=== PATIENT | female | born 1985 | race Caucasian/White ===

== ENCOUNTER → 2020-05-08 | Outpatient (CLI) | payer MEDICAID ==
[~2020-05-08] MED LIST: AMOXICILLIN 50500 MG PO; AMOXICILLIN 8751 TAB PO; CEPHALEXIN500 M1 PO; IBU600 MG PO; IMODIUM 2MG CAPS2 MG PO; NEWMANS TOP; NORCO 325 MG-51 TAB PO; PRENATAL 191 TAB PO; TYLENOL 325MG325 MG PO; TYLENOL W/COD1 UDTAB PO; ZOLOFT 50MG50 MG PO
== END ==
LOC: COL.RAD 05-07 10:26
DX: K80.20 Calculus of gallbladder without cholecystitis without obstruction (principal); K82.8 Other specified diseases of gallbladder
CPT/HCPCS: A9537; J2805

== ENCOUNTER 2020-05-15 10:31 | Day surgery (SDC) | payer MEDICAID ==
[~2020-05-15] VITALS: Ht 157.5 cm; Wt 69.1 kg
[2020-05-15 10:59] VITALS: PULSE 91; TEMP 98.2
[2020-05-15] MEDS ORDERED: PRISTIQ 50 MG T50 MG PO (12:01)
[2020-05-15] MEDS ORDERED: TOPROL XL 50MG50 MG PO (12:03)
[2020-05-15] MEDS ORDERED: ADDERALL20 MG PO ×3 (12:04→12:05)
[2020-05-15] MEDS ORDERED: PERCOCET 325 MG1 TA2 PO (14:26)
[2020-05-15] MEDS ORDERED: MOTRIN 600600 MG/TAB PO (14:26)
[2020-05-15 15:00] VITALS: BP 118/61; PULSE 87; TEMP 98.4
--- NOTE | 2020-05-15 15:00 | NUR ---
The patient arrived back to [facility] from the recovery room at this time. The patient appears drowsy but arouses easily to her name. The patient requests to try some cranberry juice and white toast at this time. The patient has five lap sites to her abdomen that are covered with claros set and without redness or edema. Post operative vital signs were started at this time. The patient's mother is at her bedside. Call light is wtihin reach. Will continue to monitor the patient.
[2020-05-15 15:15] VITALS: BP 100/72; PULSE 88
--- NOTE | 2020-05-15 15:15 | NUR ---
The patient appears to be tolerating the food and drink well. The patient's vital signs appear stable. The patient wanting anything further to eat or drink. The patient's mother remains at her bedside. Will continue to monitor the patient.
[2020-05-15 15:30] VITALS: BP 118/68; PULSE 97
--- NOTE | 2020-05-15 15:30 | NUR ---
The patient has finished her food and drink and appeared to tolerate them both well. The patient appears to be resting comfortably on the cart talking with her mother at this time. Call light remains within reach. Vital signs appear stable. Will continue to monitor the patient.
[2020-05-15 15:45] VITALS: BP 114/57; PULSE 98
--- NOTE | 2020-05-15 15:45 | NUR ---
The patient reports increased pain in her abdomen especially on the left side and was given a PRN dose of Percocet one tab at this time. The patient's vital signs appear stable. Call light is within reach. Will continue to monitor the patient.
--- NOTE | 2020-05-15 16:00 | NUR ---
The patient ambulated to the bathroom with the stand by assistance of one nurse and appeared to tolerate the activity well. The patient voided without difficulty. The nurse instructed the patient to get dressed and notify the staff when she is ready to review her discharge instructions.
--- NOTE | 2020-05-15 16:22 | NUR ---
Discharge instructions were reviewed with the patient and her mother at this time. They both verbalized understanding and have no questions for the nurse at this time. The patient's IV to her right hand was removed and a pressure dressing was applied to the site. The patient is dressed and ready to be escorted out.
--- NOTE | 2020-05-15 16:30 | NUR ---
The patient was escorted out via wheelchair to a private vehicle by XAVIER Whipple. The patient's belongings and discharge paperwork were sent with her. The patient's mother is present to drive her home.
== END 2020-05-15 16:30 | disposition home or self-care (01) ==
LOC: SDCO 10:31
DX: K80.10 Calculus of gallbladder with chronic cholecystitis without obstruction (principal); K82.8 Other specified diseases of gallbladder; K76.0 Fatty (change of) liver, not elsewhere classified; I10 Essential (primary) hypertension; E78.00 Pure hypercholesterolemia, unspecified; F17.210 Nicotine dependence, cigarettes, uncomplicated; G89.29 Other chronic pain; F32.9 Major depressive disorder, single episode, unspecified; F41.9 Anxiety disorder, unspecified; Z79.899 Other long term (current) drug therapy
CPT/HCPCS: J0360; J0690; J1100; J1170; J1885; J2405; J2704; J3010; J7120

== ENCOUNTER 2021-04-29 17:44 | Emergency (ER) | payer MEDICAID ==
[~2021-04-29 17:44] MED LIST changes: +ADDERALL20 MG PO; +MOTRIN 600600 MG/TAB PO; +PERCOCET 325 MG1 TA2 PO; +PRISTIQ 50 MG T50 MG PO; +TOPROL XL 50MG50 MG PO
[2021-04-29 19:29] VITALS: BP 132/86; PULSE 98
[2021-04-29] MEDS ORDERED: BUSPAR10 MG PO (19:31)
[2021-04-29] MEDS ORDERED: ZOLOFT 50MG50 MG PO (19:31)
== END 2021-04-29 19:32 | disposition home or self-care (01) ==
LOC: COL.ER 17:44
DX: O26.893 Other specified pregnancy related conditions, third trimester (principal); M25.531 Pain in right wrist; Z3A.37 37 weeks gestation of pregnancy

== ENCOUNTER 2021-05-19 06:15 | Inpatient (IN) | payer MEDICAID ==
[2021-05-19] VITALS (33 sets, daily range): BP systolic 117–202; BP diastolic 58–118; PULSE 77–106; TEMP 97.7–98.9
[~2021-05-19] VITALS: Ht 157.5 cm; Wt 80.0 kg
[~2021-05-19 06:15] MED LIST changes: +BUSPAR10 MG PO
--- NOTE | 2021-05-19 06:35 | NUR ---
patient here to [facility]3 for induction. patient changed into gown.. on efm. assesment complete, iv started, patient states she feels baby move, patient denies leaking of fluid or bleeding. patient feels mild contractions. consents signed. patient here with , gordo
[2021-05-19] MEDS ORDERED: MOTRIN 200200 MG/TAB PO (06:48)
[2021-05-19] MEDS ORDERED: SUDAFED 12 HOU120 MG PO (06:48)
[2021-05-19] MEDS ORDERED: BENADRYL50 MG PO (06:49)
[2021-05-19] MEDS ORDERED: PRENATAL (06:49)
[2021-05-19 07:26] LABS: BASO % 0.3 % (0.0-2.0); EOS # 0.1 (0.0-0.7); EOS % 0.8 % (0-4.0); GRAN % 62.3 % (42.2-75.2); HEMOGLOBIN 10.3 g/dl (12.5-16.0); LYMPH # 1.8 (1.2-3.4); LYMPH % 27.6 % (20.0-51.0); MEAN CELL VOLUME 90 fl (80.0-100.0); MEAN CORPUSCULAR HEMOGLOBIN 30 pg (27.0-31.0); MEAN CORPUSCULAR HGB CONC 34 g/dl (33.0-37.0); MEAN PLATELET VOLUME 10.6 fl (7.4-10.4); MONO # 0.5 (0.1-0.6); MONO % 8.5 % (1.7-9.3); PLATELET COUNT 196 K/mm3 (130-400); RED BLOOD COUNT 3.42 M/mm3 (4.10-5.30); REDCELL DISTRIBUTION WIDTH-CV 12.5 % (11.5-14.5)
[2021-05-19 07:31] LABS: HEMATOCRIT 30.7 % (37.0-47.0)
--- NOTE | 2021-05-19 11:11 | NUR ---
PATIENT STATES SHE HAS A WRIST INJURY AND HAS BEEN TAKING IBUPROFEN DURING . IV STARTED IN OTHER HAND. PATIENTS BLOOD PRESSURE CUFF ON RIGHT ARM PER PATIENT REQUEST. BPS READING HIGH. BP CUFF CHANGED TO LEFT ARM. BPS TAKING ACCURATE READING. THIS NURSE STATES WE WILL DISCUSS PLAN OF CARE
[2021-05-20] VITALS (7 sets, daily range): BP systolic 126–160; BP diastolic 78–96; PULSE 70–92; TEMP 97.7–98
--- NOTE | 2021-05-20 08:15 | NUR ---
INCREASED BP NOTED THIS AM. PHYSICIAN IN THE ROOM AND REQUESTING BP ON BOTH SIDES. 160S/90S. PATIENT HAD BEEN C/O PAIN PRIOR AND GIVEN 2 PERCOCET SHORTLY BEFORE 0800. WITH HX OF INCREASED BP PLAN FOR HOSPITALIST CONSULT AND START PROCARDIA.
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
[2021-05-21 00:55] VITALS: BP 133/83; PULSE 80
[2021-05-21 08:18] VITALS: BP 142/88; PULSE 86; TEMP 98.1
[2021-05-21] MEDS ORDERED: PERCOCET 325 MG1 TA2 PO (08:49)
[2021-05-21] MEDS ORDERED: IBU600 MG PO (08:49)
[2021-05-21] MEDS ORDERED: ADALAT CC90 MG PO (08:49)
--- NOTE | 2021-05-21 11:08 | NUR ---
Hospitalist staffed with this Vice President Quality regarding the patient's discharge and her need for OP PT. SW met with the patient to discuss OP PT options. [facility] in [place]. MARSHA faxed referral and discharge orders and contacted [facility]. They will contact the patient to set up PT evaluation. MARSHA collaborated the above information with the patient's nurse.
[2021-05-21 12:00] VITALS: BP 142/82; PULSE 84; TEMP 98.1
== END 2021-05-21 15:30 | disposition home or self-care (01) | DRG 807 ==
LOC: LDR 06:25 → OB 06:25
PROVIDERS: ADMIT Obstetrics & Gynecology
PROC: 10E0XZZ Delivery of Products of Conception, External Approach (ICD-10-PCS; principal; 2021-05-19)
PROC: 0HQ9XZZ Repair Perineum Skin, External Approach (ICD-10-PCS; 2021-05-19)
PROC: 10907ZC Drainage of Amniotic Fluid, Therapeutic from Products of Conception, Via Natural or Artificial Opening (ICD-10-PCS; 2021-05-19)
DX: O24.420 Gestational diabetes mellitus in childbirth, diet controlled (principal); Z37.0 Single live birth; O77.0 Labor and delivery complicated by meconium in amniotic fluid; O99.344 Other mental disorders complicating childbirth; F32.9 Major depressive disorder, single episode, unspecified; O70.0 First degree perineal laceration during delivery; G89.29 Other chronic pain; F41.9 Anxiety disorder, unspecified; M65.4 Radial styloid tenosynovitis [de Quervain]; O16.4 Unspecified maternal hypertension, complicating childbirth; Z3A.39 39 weeks gestation of pregnancy
CPT/HCPCS: 99222; 99231-AI; J2590; J7120